=== PATIENT | male | born 1955 | race Caucasian/White ===

== ENCOUNTER → 2019-05-30 | Outpatient (CLI) | payer MEDICAID | END | disposition home or self-care (01) | LOC: CFH 09:15 | PROVIDERS: ATTEND Family Medicine | DX: R22.0 Localized swelling, mass and lump, head (principal); J34.89 Other specified disorders of nose and nasal sinuses | CPT/HCPCS: 70450 ==

== ENCOUNTER 2019-10-07 08:06 | Inpatient (IN) | payer MEDICAID ==
[~2019-10-07] VITALS: Ht 167.6 cm; Wt 55.0 kg
[2019-10-07] MEDS ORDERED: methylPREDNISolone SOD SUCC 125 MG/2 ML IV ONE (08:30)
[2019-10-07] MEDS ORDERED: SODIUM CHLORIDE FLUSH 10ML SYR IVF ONE (08:30)
[2019-10-07] MEDS ORDERED: SODIUM CHLORIDE 0.9% 1,000ML IVBOLUS ONE ×2 (08:30→22:00)
--- NOTE | 2019-10-07 08:30 | NUR ---
THIS IS A 64 YO MALE PT BIB [place] FROM [facility] WHERE THEY WERE CALLED FOR "ASPIRATION RISK" AFTER PT PULLED AN NG TUBE. PT HAS NG TUBE FOR DYSPHAGIA SECONDARY TO BRAIN CA. PT ALSO SOB WITH HX OF COPD AND FREQUENT COPD EXACERBATIONS AND RECEIVED 6 BREATHING TRX AT [facility]. WHEN EMS PLACED PT ON SAFETY ANALYST 150'S SVT WAS NOTED BY EMS. NST 140'S NOTED UPON ARRIVAL TO ER. 350 CC NS BY EMS TRIAL LAWYER. PT AO X 4. SKIN PWD. RESP RAPID AND SHALLOW. PT ABLE TO SPEAK WITH HOARSE VOICE. PT ON CONT BP, CARDIAC AND SPO2 MONITORS. JUAN JAMES AT BEDSIDE FOR EVAL.
[2019-10-07] MEDS ORDERED: methylPREDNISolone SOD SUCC 125 MG/2 ML ONE (08:35)
[2019-10-07 09:00] LABS: MEAN CORPUSCULAR HEMOGLOBIN 29.6 pg (27.5-34.5); MEAN CORPUSCULAR VOLUME 89.7 fL (81-97); MEAN PLATELET VOLUME 10.3 fL (7.4-10.4); PLATELET COUNT 164 x10^3/uL (130-400); RED BLOOD COUNT 4.45 x10^6/uL (4.38-5.82); RED CELL DISTRIBUTION WIDTH 14.5 % (9.4-14.8)
[2019-10-07 09:07] LABS: ALANINE AMINOTRANSFERASE 50 U/L (12-78); ALBUMIN 1.7 g/dL (3.4-5.0); ANION GAP 11 mmol/L (5-15); CHLORIDE 105 mmol/L (98-107)
[2019-10-07 09:12] LABS: ALKALINE PHOSPHATASE 241 U/L (45-117); BILIRUBIN,TOTAL 0.8 mg/dL (0.2-1.0); TOTAL PROTEIN 7.2 g/dL (6.4-8.2)
[2019-10-07 09:22] LABS: BASOPHILS # (AUTO) 0.03 x10^3/uL (0-0.1); BASOPHILS % (AUTO) 0 % (0-1); EOSINOPHILS # (AUTO) 0.24 x10^3/uL (0-0.4); EOSINOPHILS % (AUTO) 2 % (1-7); LYMPHOCYTES # (AUTO) 0.75 x10^3/uL (1-3.4); LYMPHOCYTES % (AUTO) 6 % (22-44); MD SCAN; MONOCYTES # (AUTO) 0.83 x10^3/uL (0.2-0.8); MONOCYTES % (AUTO) 7 % (2-9); NEUTROPHILS # (AUTO) 10.99 x10^3/uL (1.8-6.8); NEUTROPHILS % (AUTO) 86 % (42-75)
[2019-10-07 09:24] LABS: TROPONIN I 0.248 ng/mL (0.000-0.045)
[2019-10-07] MEDS ORDERED: ASPIRIN 81 MG TABLET CHEW PO ONE (09:30)
[2019-10-07] MEDS ORDERED: PIPERACILLIN/TAZO/PMX 3.375GM 50 ML IV ONE (09:30)
--- NOTE | 2019-10-07 09:35 | NUR ---
JUAN JAMES WAS AT BEDSIDE FOR RECHECK/EXPLANATION OF POC. PT AWARE HE IS TO BE ADMITTED. PT ON CONT BP, CARDIAC AND SPO2 MONITORS. CALL LIGHT WITHIN REACH. WILL CONT TO MONITOR PT.
--- NOTE | 2019-10-07 09:42 | NUR ---
DISCUSSED WITH JUAN JAMES CHANGING PT'S ASA TO RECTAL D/T PT BEING ON AN NG TUBE FOR FEEDINGS/MEDS AT [facility]. DISCUSSED REPLACING NG TUBE AT THIS TIME VS NEW SWALLOW EVAL UPON ADMISSION TO [facility]. PER JUAN JAMES WE ARE TO HOLD ON INSERTING NEW NG TUBE UNTIL FORMAL SWALLOW EVAL. WILL CONT TO MONITOR PT.
[2019-10-07] MEDS ORDERED: PIPERACILLIN/TAZO/PMX 3.375GM 50 ML ONE (09:50)
[2019-10-07] MEDS ORDERED: ASPIRIN 300 MG SUPP PR ONE (10:00)
[2019-10-07 10:12] LABS: MICROSCOPIC INDICATED
[2019-10-07] MEDS ORDERED: SODIUM CHLORIDE 0.9% 1,000 ML IV SCH ×2 (10:21→22:30)
--- NOTE | 2019-10-07 10:26 | NUR ---
ADMITTING MD HILTON WAS AT BEDSIDE FOR EVAL. JUAN JAMES AT BEDSIDE FOR EVAL. PT DENIES CP. REPORTS HIS SOB "FEELS BETTER". PT AWARE WE ARE WAITING FOR ADMISSION. PT ON CONT BP, CARDIAC AND SPO2 MONITORS. CALL LIGHT WITHIN REACH.
[2019-10-07] MEDS ORDERED: ONDANSETRON ODT 4 MG PO PRN (10:30)
[2019-10-07] MEDS ORDERED: ONDANSETRON 2MG/ML, 2ML IVPush PRN (10:30)
--- NOTE | 2019-10-07 10:30 | NUR ---
[id number] CALLED AND INFORMED RN THAT PT HAD NG TUBE FOR DYSPHAGIA D/T "FLAP IN HIS THROAT NOT WORKING" AND PT WAS WORKING WITH PT TO ATTEMPT TO REHAB THIS WELL REHAB HIS OVERALL STRENGTH. PT WAS SUPPOSED TO DO A PARTIAL BARIUM SWALLOW ON WEDNESDAY ([id number] REPORTS THIS IS WHEN PT IS AT THE HALF-WAY).
--- NOTE | 2019-10-07 10:44 | NUR ---
laborer bituminous paving called in by "code phone." Software Tools Build Engineer asked to call ED when all labor and delivery registered nurse members reached.
--- NOTE | 2019-10-07 10:48 | NUR ---
Torres from Security/Code phone called back and states all finishing lab technician members have been reached and are called in at this time.
--- NOTE | 2019-10-07 10:51 | NUR ---
CARDS MD AT BEDSIDE FOR EVAL AT THIS TIME.
--- NOTE | 2019-10-07 11:13 | NUR ---
PT VERBALIZED UNDERSTANDING OF POC TO GO TO AGRICULTURAL PLOW OPERATOR EXPLAINED BY KAUSHIK ROJAS. CONSENT OBTAINED. DR. GUARDADO AT BEDSIDE FOR EVAL/EXPLANATION OF POC. PT ON CONT BP, CARDIAC AND SPO2 MONITORS. PT HAS CONTINUOUSLY DENIED CP. NST 100'S NOTED ON FLOOR ASSOCIATE. CALL LIGHT WITHIN REACH.
--- NOTE | 2019-10-07 11:20 | NUR ---
ECHO called for STAT ECHO.
[2019-10-07] MEDS ORDERED: MIDAZOLAM 1 MG/ML, 5ML ONE (11:27)
[2019-10-07] MEDS ORDERED: FENTANYL PF 100 MCG/2ML ONE (11:27)
[2019-10-07] MEDS ORDERED: TICAGRELOR 90 MG TABLET ONE (11:27)
[2019-10-07] MEDS ORDERED: BIVALIRUDIN 250 MG ONE (11:28)
[2019-10-07] MEDS ORDERED: HEPARIN 1,000 UNITS/ML, 10ML ONE (11:28)
[2019-10-07] MEDS ORDERED: VERAPAMIL 2.5 MG/ML, 2ML ONE (11:28)
[2019-10-07] MEDS ORDERED: LIDOCAINE-MPF 1%, 5ML ONE (11:28)
[2019-10-07] MEDS ORDERED: HEPARIN 5,000 UNITS/ML, 1ML IV ONE (12:00)
[2019-10-07] MEDS ORDERED: HEPARIN 25,000 UNITS/250ML PMX 250 ML IV PRN (12:00)
[2019-10-07] MEDS ORDERED: HEPARIN 5,000 UNITS/ML, 1ML IV PRN (12:00)
--- NOTE | 2019-10-07 12:11 | NUR ---
PT TRANSPORTED TO LEAD DENTAL ASSISTANT W/O INCIDENT. MARIZOL LOPEZ AND KAUSHIK GUARDADO AWARE THAT HEPARIN PROTOCOL NOT INITIATED YET AND OKAY WITH KAUSHIK GUARDADO. Addendum: 10/07/19 at 1213 by FLASH PT TRANSPORTED TO LEAD DENTAL ASSISTANT W/O INCIDENT. MARIZOL LOPEZ AND KAUSHIK GUARDADO AWARE THAT HEPARIN PROTOCOL NOT INITIATED YET AND OKAY WITH KAUSHIK GUARDADO. PT REQUESTED THAT WE NOT CALL HIS FAMILY UNTIL AFTER LEAD DENTAL ASSISTANT. PT'S WISHES FOLLOWED.
--- NOTE | 2019-10-07 15:03 | NUR ---
TF GOAL IF NEEDED: Promote at 70 ml/hr Addendum: 10/07/19 at [address] Amended: Links added.
[2019-10-07] MEDS: CEFTRIAXONE PMX 1GM/50ML 50 ML IV SCH (15:45)
[2019-10-07 16:43] LABS: TROPONIN I 0.257 ng/mL (0.000-0.045)
[2019-10-07] MEDS ORDERED: OMNIPAQUE 350 MG/ML, 75ML BOTTLE ONE (17:15)
[2019-10-07] MEDS: ATORVASTATIN 80 MG TABLET PO SCH (20:08)
[2019-10-07] MEDS ORDERED: ATORVASTATIN 40 MG TABLET PO SCH (21:00)
[2019-10-07] MEDS: SODIUM CHLORIDE 0.9% 1,000 ML IV SCH (23:40)
[2019-10-08] MEDS ORDERED: HEPARIN MC SCH (02:00)
[2019-10-08] MEDS: HEPARIN 5,000 UNITS/ML, 1ML SQ SCH ×3 (02:14→20:28)
[2019-10-08 03:54] VITALS: BP 95/62
[2019-10-08 05:28] LABS: ANION GAP 3 mmol/L (5-15); CALCIUM 11.7 mg/dL (8.5-10.1); CHLORIDE 110 mmol/L (98-107)
[2019-10-08 05:30] LABS: BASOPHILS % (AUTO) 0 % (0-1); EOSINOPHILS % (AUTO) 0 % (1-7); LYMPHOCYTES # (AUTO) 0.71 x10^3/uL (1-3.4); LYMPHOCYTES % (AUTO) 8 % (22-44); MD NO; MEAN CORPUSCULAR HEMOGLOBIN 29.3 pg (27.5-34.5); MEAN CORPUSCULAR HGB CONC 32.7 g/dL (33.2-36.2); MEAN CORPUSCULAR VOLUME 89.4 fL (81-97); MEAN PLATELET VOLUME 10.3 fL (7.4-10.4); MONOCYTES # (AUTO) 0.62 x10^3/uL (0.2-0.8); MONOCYTES % (AUTO) 7 % (2-9); NEUTROPHILS # (AUTO) 7.72 x10^3/uL (1.8-6.8); NEUTROPHILS % (AUTO) 85 % (42-75); PLATELET COUNT 155 x10^3/uL (130-400); RED BLOOD COUNT 3.63 x10^6/uL (4.38-5.82); RED CELL DISTRIBUTION WIDTH 14.4 % (9.4-14.8)
[2019-10-08 05:33] LABS: CHOLESTEROL, TOTAL 119 mg/dL (140-239); HDL CHOL % 20 % (26-37); HDL CHOLESTEROL (DIRECT) 24 mg/dL (40-60); LDL CHOLESTEROL,CALCULATED 67 mg/dL (54-169); LDL/HDL RATIO 2.8 (0.5-3.0); TRIGLYCERIDES 141 mg/dL (50-200); VLDL CHOLESTEROL 28 mg/dL (0-25)
[2019-10-08] MEDS ORDERED: ASPIRIN 325 MG TABLET EC PO SCH (06:00)
[2019-10-08] MEDS: FLUTICASONE/VILANTEROL 200-25MCG/INH INH SCH (11:19)
[2019-10-08] MEDS: CEFTRIAXONE PMX 1GM/50ML 50 ML IV SCH (11:19)
[2019-10-08] MEDS: ACETAMINOPHEN 325 MG TABLET PO PRN ×2 (13:14→20:27)
--- NOTE | 2019-10-08 13:26 | NUR ---
The patient would continue to benefit from INTELLIGENCE SENIOR SERGEANT intervention in a SNF. Addendum: 10/08/19 at 1326 by Cate PALMER Amended: Links added.
[2019-10-08] MEDS: SODIUM CHLORIDE 0.9% 1,000 ML IV SCH (13:54)
[2019-10-08] MEDS: ATORVASTATIN 80 MG TABLET PO SCH (20:27)
[2019-10-09] MEDS: HEPARIN 5,000 UNITS/ML, 1ML SQ SCH ×3 (02:00→18:00)
[2019-10-09 04:00] VITALS: BP 120/70
[2019-10-09] MEDS ORDERED: MORPHINE SULFATE 4 MG/ML, 1ML IVPush PRN (05:00)
[2019-10-09] MEDS ORDERED: OXYcodone/APAP 5/325MG TABLET ONE (05:01)
[2019-10-09] MEDS: SODIUM CHLORIDE 0.9% 1,000 ML IV SCH ×2 (05:26→10:00)
[2019-10-09] MEDS: OXYcodone/APAP 5/325MG TABLET PO PRN ×3 (05:26→16:19)
[2019-10-09] MEDS: ASPIRIN 325 MG TABLET PO SCH (05:27)
[2019-10-09 05:57] LABS: CHLORIDE 110 mmol/L (98-107)
[2019-10-09 05:58] LABS: BASOPHILS # (AUTO) 0.03 x10^3/uL (0-0.1); BASOPHILS % (AUTO) 0 % (0-1); EOSINOPHILS # (AUTO) 0.16 x10^3/uL (0-0.4); EOSINOPHILS % (AUTO) 2 % (1-7); LYMPHOCYTES # (AUTO) 0.67 x10^3/uL (1-3.4); LYMPHOCYTES % (AUTO) 8 % (22-44); MD NO; MEAN CORPUSCULAR HEMOGLOBIN 28.9 pg (27.5-34.5); MEAN CORPUSCULAR VOLUME 90.4 fL (81-97); MEAN PLATELET VOLUME 10.1 fL (7.4-10.4); MONOCYTES # (AUTO) 0.67 x10^3/uL (0.2-0.8); MONOCYTES % (AUTO) 8 % (2-9); NEUTROPHILS # (AUTO) 7.01 x10^3/uL (1.8-6.8); NEUTROPHILS % (AUTO) 82 % (42-75); PLATELET COUNT 163 x10^3/uL (130-400); RED CELL DISTRIBUTION WIDTH 14.1 % (9.4-14.8)
[2019-10-09 06:07] LABS: ANION GAP 5 mmol/L (5-15); CALCIUM 11.2 mg/dL (8.5-10.1); CREATININE 0.74 mg/dL (0.7-1.3)
[2019-10-09] MEDS ORDERED: POTASSIUM CHLORIDE 20 MEQ TAB.ER.PRT PO ONE (07:00)
[2019-10-09] MEDS: FLUTICASONE/VILANTEROL 200-25MCG/INH INH SCH (07:31)
--- NOTE | 2019-10-09 09:42 | NUR ---
10/08-TF GOAL: PROMOTE @ 80ML/HR
[2019-10-09] MEDS: CEFTRIAXONE PMX 1GM/50ML 50 ML IV SCH (12:59)
[2019-10-09 20:00] VITALS: BP 110/67
[2019-10-09] MEDS: ATORVASTATIN 80 MG TABLET PO SCH (21:35)
[2019-10-10] MEDS: OXYcodone/APAP 5/325MG TABLET PO PRN (00:18)
[2019-10-10] MEDS: SODIUM CHLORIDE 0.9% 1,000 ML IV SCH (00:26)
[2019-10-10] MEDS: HEPARIN 5,000 UNITS/ML, 1ML SQ SCH ×3 (02:32→16:46)
[2019-10-10 04:04] VITALS: BP 119/72
[2019-10-10] MEDS: ASPIRIN 325 MG TABLET PO SCH (06:00)
[2019-10-10] MEDS ORDERED: ALBUTEROL/IPRATROPIUM 2.5MG/0.5MG, 3 ML ONE (07:46)
[2019-10-10] MEDS ORDERED: ALBUTEROL/IPRATROPIUM 2.5MG/0.5MG, 3 ML NPPB SCH (08:30)
[2019-10-10] MEDS: FLUTICASONE/VILANTEROL 200-25MCG/INH INH SCH (08:58)
[2019-10-10] MEDS ORDERED: VANCOMYCIN PER PHARMACY MC PRN (09:30)
[2019-10-10] MEDS ORDERED: SODIUM CHLORIDE INHALATION 7%, 4 ML NPPB SCH (10:00)
[2019-10-10] MEDS ORDERED: VANCOMYCIN 1,500 MG in SODIUM CHLORIDE 0.9% 250 ML IV ONE (10:00)
[2019-10-10] MEDS ORDERED: PHARMACOKINETIC CONSULTATION MC ONE (10:00)
[2019-10-10] MEDS ORDERED: SODIUM CHLORIDE INHALATION 7%, 4 ML NPPB ONE (10:00)
[2019-10-10] MEDS ORDERED: PHARMACOKINETIC MONITORING MC PRN (10:00)
[2019-10-10] MEDS: methylPREDNISolone SOD SUCC 125 MG/2 ML IVPush SCH ×3 (11:00→22:45)
[2019-10-10] MEDS: ALBUTEROL-IPRATROPIUM MDI INH INH SCH ×3 (11:00→19:51)
[2019-10-10] MEDS: CEFTRIAXONE PMX 1GM/50ML 50 ML IV SCH (11:30)
[2019-10-10] MEDS: SODIUM CHLORIDE INHALATION 3%, 4 ML NPPB SCH ×2 (11:49→19:16)
[2019-10-10] MEDS ORDERED: METH10TA3 PO (18:59)
[2019-10-10 20:00] VITALS: BP 105/72
[2019-10-10] MEDS: ATORVASTATIN 80 MG TABLET PO SCH (21:00)
[2019-10-10] MEDS: VANCOMYCIN 1,200 MG in SODIUM CHLORIDE 0.9% 250 ML IV SCH (22:45)
[2019-10-11] MEDS: ALBUTEROL-IPRATROPIUM MDI INH INH SCH ×7 (00:12→23:30)
[2019-10-11] MEDS: HEPARIN 5,000 UNITS/ML, 1ML SQ SCH ×3 (01:32→19:35)
[2019-10-11 02:00] VITALS: BP 118/76
[2019-10-11] MEDS: methylPREDNISolone SOD SUCC 125 MG/2 ML IVPush SCH ×4 (04:08→21:28)
[2019-10-11 05:03] LABS: ANION GAP 5 mmol/L (5-15); CALCIUM 12.2 mg/dL (8.5-10.1); CHLORIDE 107 mmol/L (98-107)
[2019-10-11 06:42] VITALS: BP 119/78
[2019-10-11] MEDS: ASPIRIN 325 MG TABLET PO SCH (09:00)
[2019-10-11] MEDS: FLUTICASONE/VILANTEROL 200-25MCG/INH INH SCH (10:02)
[2019-10-11] MEDS: VANCOMYCIN 1,200 MG in SODIUM CHLORIDE 0.9% 250 ML IV SCH ×2 (10:32→21:43)
[2019-10-11 11:50] VITALS: BP 116/77
[2019-10-11] MEDS: CEFTRIAXONE PMX 1GM/50ML 50 ML IV SCH (13:00)
[2019-10-11] MEDS ORDERED: FUROSEMIDE 40 MG/4 ML IV ONE (14:30)
[2019-10-11 19:30] VITALS: BP 122/80
[2019-10-11] MEDS: ATORVASTATIN 80 MG TABLET PO SCH (21:00)
[2019-10-12 00:22] VITALS: BP 120/78
[2019-10-12] MEDS: HEPARIN 5,000 UNITS/ML, 1ML SQ SCH ×3 (02:12→18:15)
[2019-10-12] MEDS: ALBUTEROL-IPRATROPIUM MDI INH INH SCH ×6 (03:00→23:56)
[2019-10-12] MEDS: methylPREDNISolone SOD SUCC 125 MG/2 ML IVPush SCH ×4 (04:09→20:57)
[2019-10-12 06:14] LABS: MEAN CORPUSCULAR HEMOGLOBIN 29.8 pg (27.5-34.5); MEAN CORPUSCULAR HGB CONC 33.4 g/dL (33.2-36.2); MEAN CORPUSCULAR VOLUME 89.2 fL (81-97); MEAN PLATELET VOLUME 9.6 fL (7.4-10.4); PLATELET COUNT 263 x10^3/uL (130-400); RED BLOOD COUNT 4.08 x10^6/uL (4.38-5.82); RED CELL DISTRIBUTION WIDTH 14.8 % (9.4-14.8)
[2019-10-12 06:15] LABS: ANION GAP 6 mmol/L (5-15); CALCIUM 12.4 mg/dL (8.5-10.1); CHLORIDE 107 mmol/L (98-107)
[2019-10-12 06:16] LABS: CREATININE 0.99 mg/dL (0.7-1.3)
[2019-10-12 06:32] VITALS: BP 128/77
[2019-10-12] MEDS: FUROSEMIDE 40 MG/4 ML IV SCH ×2 (06:32→08:56)
[2019-10-12] MEDS: ASPIRIN 325 MG TABLET PO SCH (06:32)
[2019-10-12 06:43] LABS: MD YES
[2019-10-12 06:45] LABS: <PLATELET ESTIMATE> ADEQUATE; <PLT MORPHOLOGY> NORMAL PLT MORPH; BANDS%(MANUAL) 1 % (0-7); LYMPH#(MANUAL) 0.39 x10^3/uL (1-3.4); LYMPHS% (MANUAL) 2 % (22-44); METAMYELOCYTES% (MANUAL) 1 % (0-1); MONOS#(MANUAL) 0.59 x10^3/uL (0.3-2.7); MONOS% (MANUAL) 3 % (2-9); MYELOCYTES% (MANUAL) 1 % (0-0); NRBC % (MANUAL) 1 % (0-1); POLYCHROMASIA 1+; SEG#(MANUAL) 18.03 x10^3/uL (1.8-6.8); SEGS% (MANUAL) 92 % (42-75)
[2019-10-12 07:41] VITALS: BP 121/85
[2019-10-12] MEDS: POTASSIUM CHLORIDE 20 MEQ TAB.ER.PRT PO SCH ×2 (08:56→18:14)
[2019-10-12] MEDS: FLUTICASONE/VILANTEROL 200-25MCG/INH INH SCH (08:56)
[2019-10-12] MEDS: CEFTRIAXONE PMX 1GM/50ML 50 ML IV SCH (13:46)
[2019-10-12 13:50] VITALS: BP 114/85
[2019-10-12] MEDS: SENNA/DOCUSATE TABLET PO SCH (15:26)
[2019-10-12] MEDS: POLYETHYLENE GLYCOL 17 GM PACKET PO SCH (15:26)
[2019-10-12] MEDS: BISACODYL 10 MG SUPP PR PRN (15:27)
[2019-10-12] MEDS: ATORVASTATIN 80 MG TABLET PO SCH (20:56)
[2019-10-12] MEDS: VANCOMYCIN 1,200 MG in SODIUM CHLORIDE 0.9% 250 ML IV SCH (20:57)
[2019-10-12 21:17] VITALS: BP 123/79
[2019-10-13] MEDS: ALBUTEROL-IPRATROPIUM MDI INH INH SCH ×7 (03:09→21:59)
[2019-10-13] MEDS: HEPARIN 5,000 UNITS/ML, 1ML SQ SCH ×3 (03:09→17:56)
[2019-10-13] MEDS: methylPREDNISolone SOD SUCC 125 MG/2 ML IVPush SCH ×2 (03:09→12:02)
[2019-10-13 03:55] VITALS: BP 128/83
[2019-10-13] MEDS: ASPIRIN 325 MG TABLET PO SCH (06:32)
[2019-10-13 07:46] VITALS: BP 126/76
[2019-10-13] MEDS: FLUTICASONE/VILANTEROL 200-25MCG/INH INH SCH ×2 (09:00→12:03)
[2019-10-13] MEDS ORDERED: SENNA/DOCUSATE TABLET PO SCH (09:00)
[2019-10-13] MEDS: FUROSEMIDE 40 MG/4 ML IV SCH (12:02)
[2019-10-13] MEDS: SENNA/DOCUSATE TABLET PO SCH (12:04)
[2019-10-13] MEDS: POLYETHYLENE GLYCOL 17 GM PACKET PO SCH (12:04)
[2019-10-13] MEDS: CEFTRIAXONE PMX 1GM/50ML 50 ML IV SCH (13:23)
[2019-10-13 14:50] VITALS: BP 114/80
[2019-10-13 19:54] VITALS: BP 114/77
[2019-10-13] MEDS: ATORVASTATIN 80 MG TABLET PO SCH (21:59)
[2019-10-13] MEDS: VANCOMYCIN 1,200 MG in SODIUM CHLORIDE 0.9% 250 ML IV SCH (21:59)
[2019-10-14] MEDS: HEPARIN 5,000 UNITS/ML, 1ML SQ SCH ×3 (02:03→17:20)
[2019-10-14] MEDS: BISACODYL 10 MG SUPP PR PRN (02:03)
[2019-10-14] MEDS: ALBUTEROL-IPRATROPIUM MDI INH INH SCH ×5 (02:04→17:19)
[2019-10-14 02:55] VITALS: BP 114/76
[2019-10-14 06:31] LABS: MEAN CORPUSCULAR HEMOGLOBIN 29.2 pg (27.5-34.5); MEAN CORPUSCULAR HGB CONC 32.1 g/dL (33.2-36.2); MEAN PLATELET VOLUME 9.5 fL (7.4-10.4); PLATELET COUNT 269 x10^3/uL (130-400); RED BLOOD COUNT 4.69 x10^6/uL (4.38-5.82); RED CELL DISTRIBUTION WIDTH 14.7 % (9.4-14.8)
[2019-10-14 06:39] LABS: ALBUMIN 2.1 g/dL (3.4-5.0); ANION GAP 3 mmol/L (5-15); CALCIUM 13.4 mg/dL (8.5-10.1); CHLORIDE 111 mmol/L (98-107)
[2019-10-14 06:43] LABS: ALANINE AMINOTRANSFERASE 93 U/L (12-78); ALKALINE PHOSPHATASE 151 U/L (45-117); BILIRUBIN,TOTAL 0.6 mg/dL (0.2-1.0); CREATININE 1.08 mg/dL (0.7-1.3); TOTAL PROTEIN 6.9 g/dL (6.4-8.2)
[2019-10-14 07:13] LABS: BASOPHILS % (AUTO) 0 % (0-1); EOSINOPHILS # (AUTO) 0.18 x10^3/uL (0-0.4); EOSINOPHILS % (AUTO) 1 % (1-7); LYMPHOCYTES # (AUTO) 1.34 x10^3/uL (1-3.4); LYMPHOCYTES % (AUTO) 7 % (22-44); MD SCAN; MONOCYTES # (AUTO) 1.81 x10^3/uL (0.2-0.8); MONOCYTES % (AUTO) 9 % (2-9); NEUTROPHILS # (AUTO) 16.26 x10^3/uL (1.8-6.8); NEUTROPHILS % (AUTO) 83 % (42-75)
[2019-10-14 08:13] VITALS: BP 106/74
[2019-10-14] MEDS: POLYETHYLENE GLYCOL 17 GM PACKET PO SCH (09:00)
[2019-10-14] MEDS: SENNA/DOCUSATE TABLET PO SCH (09:00)
[2019-10-14] MEDS: ASPIRIN 325 MG TABLET PO SCH (09:00)
[2019-10-14] MEDS: FLUTICASONE/VILANTEROL 200-25MCG/INH INH SCH (09:00)
[2019-10-14] MEDS: POTASSIUM CHLORIDE 10 MEQ in D5%-0.45% NACL 1,000 ML IV SCH (10:39)
[2019-10-14] MEDS: CEFTRIAXONE PMX 1GM/50ML 50 ML IV SCH (13:14)
[2019-10-14 14:19] VITALS: BP 107/73
[2019-10-14 19:10] LABS: ANION GAP 4 mmol/L (5-15); CHLORIDE 115 mmol/L (98-107)
[2019-10-14 20:00] VITALS: BP 132/72
[2019-10-14] MEDS: VANCOMYCIN 1,200 MG in SODIUM CHLORIDE 0.9% 250 ML IV SCH (20:33)
[2019-10-14] MEDS: ATORVASTATIN 80 MG TABLET PO SCH (20:34)
[2019-10-15] MEDS: POTASSIUM CHLORIDE 10 MEQ in D5%-0.45% NACL 1,000 ML IV SCH (00:25)
[2019-10-15] MEDS: ALBUTEROL-IPRATROPIUM MDI INH INH SCH ×7 (00:26→23:00)
[2019-10-15] MEDS: HEPARIN 5,000 UNITS/ML, 1ML SQ SCH ×3 (02:11→17:27)
[2019-10-15 02:14] VITALS: BP 96/68
[2019-10-15 05:08] LABS: MEAN CORPUSCULAR HEMOGLOBIN 29.2 pg (27.5-34.5); MEAN CORPUSCULAR HGB CONC 32.2 g/dL (33.2-36.2); MEAN CORPUSCULAR VOLUME 90.6 fL (81-97); MEAN PLATELET VOLUME 9.8 fL (7.4-10.4); PLATELET COUNT 216 x10^3/uL (130-400); RED BLOOD COUNT 4.67 x10^6/uL (4.38-5.82); RED CELL DISTRIBUTION WIDTH 15.3 % (9.4-14.8)
[2019-10-15 05:13] LABS: ALBUMIN 1.9 g/dL (3.4-5.0); ANION GAP 3 mmol/L (5-15); CALCIUM 13.8 mg/dL (8.5-10.1); CHLORIDE 117 mmol/L (98-107)
[2019-10-15 05:16] LABS: ALANINE AMINOTRANSFERASE 66 U/L (12-78); ALKALINE PHOSPHATASE 134 U/L (45-117); BILIRUBIN,TOTAL 0.8 mg/dL (0.2-1.0); CREATININE 1.18 mg/dL (0.7-1.3); TOTAL PROTEIN 6.7 g/dL (6.4-8.2)
[2019-10-15 05:47] LABS: MD YES
[2019-10-15 05:49] LABS: EOS#(MANUAL) 0.24 x10^3/uL (0.0-0.4); EOS% (MANUAL) 1 % (1-7); LYMPH#(MANUAL) 2.16 x10^3/uL (1-3.4); LYMPHS% (MANUAL) 9 % (22-44); METAMYELOCYTES# (MANUAL) 0.24 x10^3/uL (0-0); METAMYELOCYTES% (MANUAL) 1 % (0-1); MONOS% (MANUAL) 5 % (2-9); POLYCHROMASIA 1+; SEG#(MANUAL) 20.16 x10^3/uL (1.8-6.8); SEGS% (MANUAL) 84 % (42-75)
[2019-10-15 05:50] LABS: <PLATELET ESTIMATE> ADEQUATE; <PLT MORPHOLOGY> NORMAL PLT MORPH; TOXIC GRAN 1+
[2019-10-15] MEDS: ASPIRIN 325 MG TABLET PO SCH (06:00)
[2019-10-15 08:59] VITALS: BP 98/67
[2019-10-15] MEDS: POLYETHYLENE GLYCOL 17 GM PACKET PO SCH (09:00)
[2019-10-15] MEDS: SENNA/DOCUSATE TABLET PO SCH (09:00)
[2019-10-15] MEDS ORDERED: POTASSIUM CHLORIDE 10 MEQ in D5%-0.45% NACL 1,000 ML IV SCH (09:30)
[2019-10-15] MEDS: PIPERACILLIN/TAZO/PMX 4.5GM 100 ML IV SCH ×3 (09:37→21:35)
[2019-10-15] MEDS: FLUTICASONE/VILANTEROL 200-25MCG/INH INH SCH (09:38)
[2019-10-15 11:37] VITALS: BP 94/70
[2019-10-15] MEDS: methylPREDNISolone SOD SUCC 125 MG/2 ML IVPush SCH ×2 (13:48→19:42)
[2019-10-15 19:51] VITALS: BP 97/67
[2019-10-15] MEDS: ATORVASTATIN 80 MG TABLET PO SCH (21:00)
[2019-10-15] MEDS: VANCOMYCIN 1,200 MG in SODIUM CHLORIDE 0.9% 250 ML IV SCH (22:22)
[2019-10-16 00:44] VITALS: BP 110/73
[2019-10-16] MEDS: ALBUTEROL-IPRATROPIUM MDI INH INH SCH ×2 (03:00→09:56)
[2019-10-16] MEDS: methylPREDNISolone SOD SUCC 125 MG/2 ML IVPush SCH ×2 (03:48→09:54)
[2019-10-16] MEDS: PIPERACILLIN/TAZO/PMX 4.5GM 100 ML IV SCH ×2 (03:48→09:54)
[2019-10-16] MEDS: HEPARIN 5,000 UNITS/ML, 1ML SQ SCH (03:48)
[2019-10-16] MEDS: ASPIRIN 325 MG TABLET PO SCH (05:27)
[2019-10-16 07:39] VITALS: BP 100/65
[2019-10-16] MEDS ORDERED: CALCITONIN SALMON 200 UNITS/ML, 2ML SQ SCH (09:00)
[2019-10-16] MEDS: SENNA/DOCUSATE TABLET PO SCH (09:00)
[2019-10-16] MEDS: POLYETHYLENE GLYCOL 17 GM PACKET PO SCH (09:00)
[2019-10-16] MEDS ORDERED: MORPHINE 30MG/30ML PCA.SYR IV PRN (12:30)
[2019-10-16] MEDS ORDERED: LORazepam 2 MG/ML, 1ML IVPush PRN (12:30)
[2019-10-16] MEDS ORDERED: ATROPINE OPHTH SOLN 1%, 5ML PO PRN (12:30)
[2019-10-16 13:05] VITALS: BP 92/68
[2019-10-16] MEDS: MORPHINE SULFATE 4 MG/ML, 1ML IVPush PRN ×2 (13:14→13:54)
[2019-10-16] MEDS ORDERED: VANCOMYCIN 1,200 MG in SODIUM CHLORIDE 0.9% 250 ML IV SCH (20:00)
== END 2019-10-16 20:31 | disposition expired ==
LOC: ED 08:24 → EDIP 10:00 → ICU 12:34 → 4EST 10-11 06:30 → 4WST 10-16 13:40 → 3WST 10-16 14:20
PROVIDERS: ADMIT Internal Medicine; ATTEND Internal Medicine
PROC: 4A023N7 Measurement of Cardiac Sampling and Pressure, Left Heart, Percutaneous Approach (ICD-10-PCS; principal; 2019-10-07)
PROC: B2111ZZ Fluoroscopy of Multiple Coronary Arteries using Low Osmolar Contrast (ICD-10-PCS; 2019-10-07)
PROC: B2151ZZ Fluoroscopy of Left Heart using Low Osmolar Contrast (ICD-10-PCS; 2019-10-07)
DX: I21.09 ST elevation (STEMI) myocardial infarction involving other coronary artery of anterior wall (principal); E43 Unspecified severe protein-calorie malnutrition; J96.00 Acute respiratory failure, unspecified whether with hypoxia or hypercapnia; I50.33 Acute on chronic diastolic (congestive) heart failure; J18.9 Pneumonia, unspecified organism; C79.51 Secondary malignant neoplasm of bone; E87.0 Hyperosmolality and hypernatremia; I31.3 Pericardial effusion (noninflammatory); J98.11 Atelectasis; Q24.5 Malformation of coronary vessels; R65.10 Systemic inflammatory response syndrome (SIRS) of non-infectious origin without acute organ dysfunction; I47.1 Supraventricular tachycardia; R64 Cachexia; Z68.1 Body mass index [BMI] 19.9 or less, adult; K94.23 Gastrostomy malfunction; E83.52 Hypercalcemia; E86.0 Dehydration; I24.9 Acute ischemic heart disease, unspecified; I37.1 Nonrheumatic pulmonary valve insufficiency; J43.9 Emphysema, unspecified; Z51.5 Encounter for palliative care; R13.10 Dysphagia, unspecified; I95.9 Hypotension, unspecified; G47.30 Sleep apnea, unspecified; R79.89 Other specified abnormal findings of blood chemistry; Z87.891 Personal history of nicotine dependence; Z53.20 Procedure and treatment not carried out because of patient's decision for unspecified reasons; Z85.841 Personal history of malignant neoplasm of brain; Z20.828 Contact with and (suspected) exposure to other viral communicable diseases; B95.62 Methicillin resistant Staphylococcus aureus infection as the cause of diseases classified elsewhere; Y83.3 Surgical operation with formation of external stoma as the cause of abnormal reaction of the patient, or of later complication, without mention of misadventure at the time of the procedure
CPT/HCPCS: 36415; 36600; 71045; 71275; 74018; 80048; 80053; 80061; 80202; 81001; 82330; 82803; 83605; 83690; 83735; 83880; 84484; 85025; 85379; 85520; 87040; 87081; 87635; 93005; 93306; 93308; 93458; 96374; 99156; 99291; C1769; C1894; G0378; J0583; J0696; J1644; J1940; J2250; J2270; J2543; J3010; J3370; J3480; Q9967; J2060; J2930; J7030; J7050; J7512